=== PATIENT | female | born 1990 | race Caucasian/White ===

== ENCOUNTER 2017-03-21 23:52 | Inpatient (IN) | payer OTHER ==
[~2017-03-21] VITALS: Ht 175.3 cm; Wt 65.2 kg
[2017-03-22] MEDS ORDERED: TRAM100T3 PO (00:24)
[2017-03-22] MEDS ORDERED: HYDR10TA4 PO (00:24)
[2017-03-22] MEDS ORDERED: CITA10TA8 PO (00:24)
[2017-03-22] MEDS ORDERED: ZIPRASIDONE 20 MG INJ IM ONE ×2 (00:40→01:00)
[2017-03-22 00:41] LABS: HEMATOCRIT 41.5 % (34.6-47.8); HEMOGLOBIN 13.9 g/dL (11.7-16.4); WHITE BLOOD COUNT 8.1 x10^3/uL (3.4-10)
[2017-03-22 00:54] LABS: ACETAMINOPHEN < 2 mcg/mL (10-30); BLOOD UREA NITROGEN 14 mg/dL (7-18)
[2017-03-22 00:58] LABS: ASPARTATE AMINO TRANSFERASE 19 U/L (15-37)
[2017-03-22 04:38] LABS: DAU SCREEN DISCLAIMER
[2017-03-22] MEDS ORDERED: ACETAMINOPHEN 325 MG TABLET PO ONE (07:30)
[2017-03-22] MEDS ORDERED: ACETAMINOPHEN 325 MG TABLET ONE (07:31)
[2017-03-22] MEDS ORDERED: hydrOXyzine 10MG TABLET PO ONE (08:55)
[2017-03-22] MEDS ORDERED: ONDANSETRON ODT 8 MG PO STA (08:56)
[2017-03-22] MEDS ORDERED: CITALOPRAM 10 MG TABLET PO SCH (09:00)
[2017-03-22] MEDS ORDERED: ONDANSETRON ODT 8 MG ONE (09:00)
[2017-03-22] MEDS ORDERED: LORazepam 1MG TABLET ONE (09:00)
[2017-03-22] MEDS ORDERED: LORazepam 1MG TABLET PO ONE (09:00)
[2017-03-22] MEDS ORDERED: morphine SULFATE 10 MG/ML, 1ML IVPush PRN (09:30)
[2017-03-22] MEDS: SODIUM CHLORIDE 0.9% 1,000 ML IV SCH ×3 (09:30→20:03)
[2017-03-22] MEDS ORDERED: ONDANSETRON 2MG/ML, 2ML IVPush PRN (09:30)
[2017-03-22] MEDS ORDERED: hydrOXyzine 10MG TABLET PO PRN (09:30)
[2017-03-22] MEDS ORDERED: hydrALAzine 20 MG/ML, 1ML IVPush PRN (09:30)
[2017-03-22] MEDS: CITALOPRAM 20 MG TABLET PO SCH (10:20)
[2017-03-22] MEDS ORDERED: ONDANSETRON ODT 8 MG PO ONE (11:00)
[2017-03-22] MEDS: POTASSIUM CHLORIDE 20 MEQ, MAGNESIUM SULFATE 1 GM, FOLIC ACID 1 MG, THIAMINE 100 MG, MV... IV SCH (12:24)
[2017-03-22] MEDS ORDERED: ONDANSETRON 2MG/ML, 2ML ONE (13:26)
[2017-03-22] MEDS ORDERED: LORazepam 2 MG/ML, 1ML ONE (13:46)
[2017-03-22] MEDS: LORazepam 2 MG/ML, 1ML IVPush PRN ×4 (13:47→21:11)
[2017-03-22] MEDS: hydrOXyzine 10MG TABLET PO PRN (14:09)
[2017-03-22] MEDS ORDERED: HALOPERIDOL 5 MG/ML ONE (15:06)
[2017-03-22] MEDS: HALOPERIDOL 5 MG/ML IM PRN (15:10)
[2017-03-22 15:59] VITALS: BP 93/54
[2017-03-22 19:32] VITALS: BP 107/66
[2017-03-23 01:46] VITALS: BP 106/63
[2017-03-23] MEDS: LORazepam 2 MG/ML, 1ML IVPush PRN ×2 (01:56→09:12)
[2017-03-23] MEDS: SODIUM CHLORIDE 0.9% 1,000 ML IV SCH (05:57)
[2017-03-23 07:04] VITALS: BP 101/67
[2017-03-23] MEDS: CITALOPRAM 20 MG TABLET PO SCH (07:44)
[2017-03-23] MEDS: POTASSIUM CHLORIDE 20 MEQ, MAGNESIUM SULFATE 1 GM, FOLIC ACID 1 MG, THIAMINE 100 MG, MV... IV SCH (10:53)
[2017-03-23 11:16] VITALS: BP 113/79
[2017-03-23] MEDS: hydrOXyzine 10MG TABLET PO PRN ×2 (11:58→20:48)
[2017-03-23] MEDS: THIAMINE 100MG TABLET PO SCH (11:58)
[2017-03-23] MEDS: OXYcodone IR 5MG TABLET PO PRN ×2 (11:58→16:57)
[2017-03-23] MEDS: MULTIVITAMIN 1 TABLET PO SCH (11:58)
[2017-03-23] MEDS: FOLIC ACID 1 MG TABLET PO SCH (11:58)
[2017-03-23] MEDS ORDERED: LORazepam 2 MG/ML, 1ML ONE (12:10)
[2017-03-23] MEDS: MAGNESIUM OXIDE 400 MG TABLET PO SCH ×2 (12:14→20:48)
[2017-03-23] MEDS: LORazepam 2 MG/ML, 1ML IM PRN ×2 (12:14→18:01)
[2017-03-23 19:35] VITALS: BP 109/71
[2017-03-23] MEDS: HALOPERIDOL 5 MG/ML IM PRN (22:05)
[2017-03-24] MEDS: LORazepam 2 MG/ML, 1ML IM PRN ×2 (05:58→09:01)
[2017-03-24 08:02] VITALS: BP 127/84
[2017-03-24] MEDS: MAGNESIUM OXIDE 400 MG TABLET PO SCH ×2 (08:44→20:17)
[2017-03-24] MEDS: MULTIVITAMIN 1 TABLET PO SCH (08:45)
[2017-03-24] MEDS: FOLIC ACID 1 MG TABLET PO SCH (08:45)
[2017-03-24] MEDS: THIAMINE 100MG TABLET PO SCH (08:45)
[2017-03-24] MEDS: CITALOPRAM 20 MG TABLET PO SCH (08:48)
[2017-03-24] MEDS: LORazepam 1MG TABLET PO PRN (13:04)
[2017-03-24] MEDS ORDERED: ACETAMINOPHEN 325 MG TABLET ONE (18:20)
[2017-03-24] MEDS: ACETAMINOPHEN 325 MG TABLET PO PRN (18:23)
[2017-03-24 19:47] VITALS: BP 99/55
[2017-03-24] MEDS: hydrOXyzine 10MG TABLET PO PRN (20:17)
[2017-03-25] MEDS: LORazepam 1MG TABLET PO PRN ×3 (01:40→19:10)
[2017-03-25 08:03] VITALS: BP 117/79
[2017-03-25] MEDS: CITALOPRAM 20 MG TABLET PO SCH (08:41)
[2017-03-25] MEDS: MULTIVITAMIN 1 TABLET PO SCH (08:42)
[2017-03-25] MEDS: THIAMINE 100MG TABLET PO SCH (08:42)
[2017-03-25] MEDS: FOLIC ACID 1 MG TABLET PO SCH (08:42)
[2017-03-25] MEDS: MAGNESIUM OXIDE 400 MG TABLET PO SCH ×2 (08:42→20:20)
[2017-03-25 19:02] VITALS: BP 121/83
[2017-03-25 19:09] VITALS: BP 121/83
[2017-03-25] MEDS: NICOTINE GUM 2 MG BC PRN (20:44)
[2017-03-25] MEDS: hydrOXyzine 10MG TABLET PO PRN (21:22)
[2017-03-26] MEDS: LORazepam 1MG TABLET PO PRN ×3 (03:19→17:14)
[2017-03-26 08:00] VITALS: BP 106/96
[2017-03-26] MEDS: MAGNESIUM OXIDE 400 MG TABLET PO SCH (09:00)
[2017-03-26] MEDS: THIAMINE 100MG TABLET PO SCH (09:00)
[2017-03-26] MEDS: FOLIC ACID 1 MG TABLET PO SCH (09:00)
[2017-03-26] MEDS: CITALOPRAM 20 MG TABLET PO SCH (09:00)
[2017-03-26] MEDS: MULTIVITAMIN 1 TABLET PO SCH (09:00)
[2017-03-26] MEDS: NICOTINE GUM 2 MG BC PRN ×3 (09:10→14:15)
[2017-03-26] MEDS: ACETAMINOPHEN 325 MG TABLET PO PRN (13:34)
[2017-03-26] MEDS ORDERED: MAGN400T26 PO (18:31)
[2017-03-26] MEDS ORDERED: LORA-446 PO (18:31)
[2017-03-26] MEDS ORDERED: FOLI-17 PO (18:31)
[2017-03-26] MEDS ORDERED: MULT1TAB60 PO (18:31)
[2017-03-26] MEDS ORDERED: THIA100T6 PO (18:31)
[2017-03-26] MEDS ORDERED: CITA40TA12 PO (19:35)
[2017-03-26] MEDS ORDERED: HYDR10TA4 PO (19:37)
== END 2017-03-26 19:58 | disposition home or self-care (01) | DRG 897 ==
LOC: ED 23:59 → EDIP 03-22 08:02 → OBSVTOIN 03-22 09:11 → 3NE 03-22 15:46 → 3E 03-23 11:12
PROVIDERS: ADMIT Hospitalist; ATTEND Internal Medicine
DX: F10.120 Alcohol abuse with intoxication, uncomplicated (principal); R45.851 Suicidal ideations; F32.9 Major depressive disorder, single episode, unspecified; F43.10 Post-traumatic stress disorder, unspecified; Y90.7 Blood alcohol level of 200-239 mg/100 ml; R00.0 Tachycardia, unspecified; R06.82 Tachypnea, not elsewhere classified; F12.10 Cannabis abuse, uncomplicated; Z91.410 Personal history of adult physical and sexual abuse; Z90.49 Acquired absence of other specified parts of digestive tract
CPT/HCPCS: 36415; 80053; 80307; 80329; 81003; 84439; 84443; 84703; 85025; 96372; 96374; J2405; J3411; J3475; J3480; J3486; Q0162; G0378; G0479; G0480; J1630; J2060; J7030; J7121